=== PATIENT | male | born 1935 | race Caucasian/White ===

== ENCOUNTER 2017-01-01 11:05 | Inpatient (IN) | payer MEDICARE, OTHER ==
[2017-01-01 15:17] LABS: HCT 28.5 % (42.0-52.0); HGB 9.3 g/dl (13.2-18.0); MCH 32.7 pg (25.0-31.0); MCHC 32.6 g/dL (32.0-36.0); MCV 100.4 fL (78.0-100.0); RBC 2.84 M/uL (4.70-6.00); RDW 17.3 % (11.5-14.0)
[2017-01-01 15:23] LABS: WBC 11.2 K/uL (4.0-10.5)
[2017-01-01 15:34] LABS: CREATININE 1.7 mg/dL (0.7-1.2); MAGNESIUM 1.61 mg/dL (1.40-2.10); POTASSIUM 5.3 mmol/L (3.5-5.1)
[2017-01-02 04:09] LABS: HGB 9.1 g/dl (13.2-18.0); MCH 31.7 pg (25.0-31.0); MCHC 31.4 g/dL (32.0-36.0); MPV 9.6 fL (6.0-9.5); RBC 2.87 M/uL (4.70-6.00); RDW 17.8 % (11.5-14.0); WBC 13.9 K/uL (4.0-10.5)
[2017-01-02 04:29] LABS: CREATININE 1.9 mg/dL (0.7-1.2); POTASSIUM 5.3 mmol/L (3.5-5.1)
[2017-01-03 03:59] LABS: HCT 26.1 % (42.0-52.0); HGB 8.4 g/dl (13.2-18.0); MCH 32.3 pg (25.0-31.0); MCHC 32.2 g/dL (32.0-36.0); MCV 100.4 fL (78.0-100.0); MPV 9.6 fL (6.0-9.5); RBC 2.6 M/uL (4.70-6.00); RDW 17.6 % (11.5-14.0); WBC 11.5 K/uL (4.0-10.5)
[2017-01-03 04:15] LABS: CREATININE 1.9 mg/dL (0.7-1.2); POTASSIUM 5.4 mmol/L (3.5-5.1)
[2017-01-03 16:13] LABS: RETICULOCYTE COUNT 1.5 % (1.0-2.0)
[2017-01-03 16:15] LABS: IRON 13 ug/dL (44-196); IRON % SATURATION 7 %SAT (20-50); TIBC (TOTAL IRON + UIBC) 185 U/L (228-428); UIBC 172 ug/dL (112-346)
[2017-01-03 16:31] LABS: FOLIC ACID (SERUM) > 20.0 ng/mL (5.6-45.8)
[2017-01-04 04:05] LABS: HCT 26.4 % (42.0-52.0); HGB 8.6 g/dl (13.2-18.0); MCH 32.6 pg (25.0-31.0); MCHC 32.6 g/dL (32.0-36.0); MPV 9.7 fL (6.0-9.5); RBC 2.64 M/uL (4.70-6.00); RDW 17.2 % (11.5-14.0); WBC 9.7 K/uL (4.0-10.5)
[2017-01-04 04:20] LABS: CREATININE 1.8 mg/dL (0.7-1.2); POTASSIUM 4.5 mmol/L (3.5-5.1)
[2017-01-04] MEDS ORDERED: CERTAGEN1 EACH PO (14:10)
[2017-01-04] MEDS ORDERED: PRILOSEC20 MG PO (14:10)
[2017-01-04] MEDS ORDERED: CELEXA20 MG PO (14:10)
[2017-01-04] MEDS ORDERED: LIPITOR20 M1 PO (14:11)
[2017-01-04] MEDS ORDERED: XANAX0.5 MG PO (14:11)
[2017-01-04] MEDS ORDERED: ASPIRIN81 MG PO (14:11)
[2017-01-04] MEDS ORDERED: PRESERVISION A1 EAC1 PO (14:11)
[2017-01-04] MEDS ORDERED: FLORAJEN460 MG PO (14:12)
[2017-01-04] MEDS ORDERED: TYLENOL PM EX-1 EACH PO (14:12)
[2017-01-04] MEDS ORDERED: PERCOCET 5/3251 TAB PO (14:12)
[2017-01-04] MEDS ORDERED: FLOMAX0.4 MG PO (14:12)
[2017-01-04] MEDS ORDERED: METRONIDAZOLE500 MG PO (14:12)
[2017-01-04] MEDS ORDERED: MYSOLINE50 MG PO (14:12)
[2017-01-04] MEDS ORDERED: ENTERAGAM POWDER5 GM PO (14:13)
[2017-01-04] MEDS ORDERED: BUMETANIDE1 MG PO (14:13)
[2017-01-04] MEDS ORDERED: MAG-OXIDE 400M400 MG PO (14:13)
[2017-01-04] MEDS ORDERED: ISOSORBIDE MONO60 MG PO (14:14)
[2017-01-04] MEDS ORDERED: NIFEREX150 MG PO (14:14)
== END 2017-01-04 14:52 | disposition home or self-care (01) | DRG 327 ==
LOC: FTCU 11:05
PROVIDERS: Internal Medicine; ADMIT Surgery
PROC: 0DP60CZ Removal of Extraluminal Device from Stomach, Open Approach (ICD-10-PCS; principal; 2017-01-01 08:15)
PROC: 0DJ08ZZ Inspection of Upper Intestinal Tract, Via Natural or Artificial Opening Endoscopic (ICD-10-PCS; 2017-01-01 08:15)
DX: K95.09 Other complications of gastric band procedure (principal); I13.0 Hypertensive heart and chronic kidney disease with heart failure and stage 1 through stage 4 chronic kidney disease, or unspecified chronic kidney disease; I50.32 Chronic diastolic (congestive) heart failure; I45.3 Trifascicular block; N18.3 Chronic kidney disease, stage 3 (moderate); E78.5 Hyperlipidemia, unspecified; K21.9 Gastro-esophageal reflux disease without esophagitis; D64.9 Anemia, unspecified; F32.9 Major depressive disorder, single episode, unspecified; I25.10 Atherosclerotic heart disease of native coronary artery without angina pectoris; Z95.1 Presence of aortocoronary bypass graft; Z88.8 Allergy status to other drugs, medicaments and biological substances; Z87.891 Personal history of nicotine dependence; Z82.49 Family history of ischemic heart disease and other diseases of the circulatory system; Z79.82 Long term (current) use of aspirin; Z79.899 Other long term (current) drug therapy; Z95.2 Presence of prosthetic heart valve; Z83.3 Family history of diabetes mellitus; Z80.9 Family history of malignant neoplasm, unspecified
CPT/HCPCS: 36415; 74022; 80048; 82150; 82607; 82746; 83540; 83550; 83735; 84484; 85044; 86850; 86880; 86900; 86901; 86905; 86972; 88300; 93005; 94010; C9113; J0131; J0690; J0885; J1100; J2270; J2405; J2704; J2710; J2916; J3010